=== PATIENT | female | born 1940 | race Caucasian/White ===

== ENCOUNTER 2018-12-19 14:33 | Emergency (ER) | payer MEDICARE, BC ==
--- NOTE | 2018-12-19 15:30 | EDM.PDOC ---
ED HPI GENERAL MEDICAL PROBLEM - General Chief Complaint: General Stated Complaint: breathing issues while sleeping Time Seen by Provider: 12/19/18 15:15 Source of Information: Reports: Patient, Old Records History Limitations: Reports: No Limitations - History of Present Illness INITIAL COMMENTS - FREE TEXT/NARRATIVE: 78 yo female with and a recent ECHO that showed 45- 50% EF(was 60% on her prior study) was last seen by her pipe bender in August. They added an ARB and metoprolol at that time and asked her to return in a year for another ECHO. She has been experiencing increased frequency of waking in the middle of the night with SOB. When this occurs she sits up and the problem goes away. She is on CPAP for sleep apnea. She feels perfectly fine now with no SOB or CP, but when she called her pipe bender today to report her sx's was told to go to the ER. She has never discussed this problem with her primary care provider. She thinks her BP in August was in the 120-130 systolic range and she has not missed any of her meds lately. 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) - Related Data Allergies Allergy/AdvReac Type Severity Reaction Status Date / Time atenolol Allergy Itching Verified 07/05/16 09:27 penicillin G AdvReac Nausea and Verified 07/05/16 09:27 Vomiting Home Meds: Home Meds Amitriptyline [Elavil] 0.5 tab PO BEDTIME 07/31/13 [History] Calcium Carbonate/Vitamin D3 [Calcium Carbonate/Vitamin D 1250 MG-200 Unit] 1 tab PO BID 07/31/13 [History] Cyanocobalamin (Vitamin B-12) [Vitamin B-12] 1,000 mcg PO DAILY 07/31/13 [ History] Docusate Sodium [Colace] 100 mg PO DAILY PRN 07/31/13 [History] Magnesium Amino Acid Chelate [Magnesium] 100 mg PO DAILY 07/31/13 [History] Metoprolol Succinate [Toprol XL] 50 mg PO BID 07/31/13 [History] Multivit with Calcium,Iron,Min [One Daily Maximum] 1 each PO DAILY 07/31/13 [ History] [place]-3/DHA/Epa/Fish Oil [[place]-3 Fish Oil 1,000 MG Sfgl] 1,000 mg PO DAILY [History] Psyllium with Sucrose [Metamucil] 1 each PO DAILY 07/31/13 [History] atorvaSTATin [Lipitor] 20 mg PO BEDTIME 07/31/13 [History] diazePAM [Valium] 5 mg PO BID PRN 07/31/13 [History] Aspirin [Ecotrin EC] 1 tab PO DAILY 06/29/16 [History] Calcium Carbonate [Tums] 1 tab PO DAILY PRN 06/29/16 [History] Fluticasone/Vilanterol [Breo Ellipta 100-25 MCG Inhalation Kit] 1 puff INH DAILY 06/29/16 [History] Albuterol [Ventolin HFA] 1 - 2 puff INH Q6H PRN 12/19/18 [History] Famotidine [Pepcid] 20 mg PO ASDIRECTED PRN 12/19/18 [History] Fluticasone/Vilanterol [Breo Ellipta 100-25 MCG Inhalation Kit] 1 puff INH DAILY 12/19/18 [History] Losartan [Cozaar] 25 mg PO DAILY 12/19/18 [History] Social & Family History - Tobacco Use Smoking Status *Q: Never Smoker ED ROS GENERAL - Review of Systems Review Of Systems: See Below Constitutional: Reports: No Symptoms HEENT: Reports: No Symptoms Respiratory: Reports: Shortness of Breath (with lying only) Cardiovascular: Reports: Orthopnea Endocrine: Reports: No Symptoms GI/Abdominal: Reports: No Symptoms : Reports: No Symptoms Musculoskeletal: Reports: No Symptoms Skin: Reports: No Symptoms Neurological: Reports: No Symptoms Psychiatric: Reports: No Symptoms ED EXAM, GENERAL - Physical Exam Exam: See Below Exam Limited By: No Limitations General Appearance: Alert, WD/WN, No Apparent Distress Eye Exam: Bilateral Eye: Normal Inspection Ears: Normal External Exam, Normal Canal, Hearing Grossly Normal, Normal TMs Ear Exam: Bilateral Ear: Auricle Normal, Canal Normal, TM normal Nose: Normal Inspection, No Blood Throat/Mouth: Normal Inspection, Normal Lips, Normal Oropharynx, Normal Voice, No Airway Compromise Head: Atraumatic, Normocephalic Neck: Normal Inspection, Supple, Non-Tender Respiratory/Chest: No Respiratory Distress, No Accessory Muscle Use, Rales (at extreme bases only) Cardiovascular: Regular Rate, Rhythm, No Edema GI/Abdominal: Normal Bowel Sounds, Soft, Non-Tender, No Distention Back Exam: Normal Inspection. No: CVA Tenderness (R), CVA Tenderness (L) Extremities: Normal Inspection, Normal Range of Motion, Non-Tender, No Pedal Edema Neurological: Alert, Oriented, CN II-XII Intact, Normal Cognition, No Motor/ Sensory Deficits Psychiatric: Normal Affect, Normal Mood Skin Exam: Warm, Dry, Intact, Normal Color, No Rash Course - Vital Signs Last Recorded V/S: Last Vital Signs Temp 36.2 C 12/19/18 15:21 Pulse 68 12/19/18 15:21 Resp 16 12/19/18 15:21 BP 170/90 H 12/19/18 15:21 Pulse Ox 95 12/19/18 15:21 - Orders/Labs/Meds Labs: Laboratory Tests 12/19/18 12/19/18 12/19/18 Range/Units 15:33 15:33 15:33 WBC 9.0 (4.5-11.0) K/uL RBC 4.19 (3.30-5.50) M/uL Hgb 13.0 (12.0-15.0) g/dL Hct 41.0 (36.0-48.0) % MCV 98 (80-98) fL MCH 31 (27-31) pg MCHC 32 (32-36) % Plt Count 194 (150-400) K/uL Sodium 141 (140-148) mmol/L Potassium 4.8 (3.6-5.2) mmol/L Chloride 102 (100-108) mmol/L Carbon Dioxide 34 H (21-32) mmol/L Anion Gap 9.8 (5.0-14.0) mmol/L BUN 17 (7-18) mg/dL Creatinine 1.0 (0.6-1.0) mg/dL Est Cr Clr Drug Dosing 39.39 mL/min Estimated GFR (MDRD) 53 L (>60) Glucose 106 (74-106) mg/dL Calcium 9.4 (8.5-10.1) mg/dL Troponin I < 0.017 (0.000-0.056) ng/mL NT-Pro-B Natriuret Pep 187 (5-450) pg/mL - Radiology Interpretation Free Text/Narrative:: CXR-neg Departure - Departure Time of Disposition: 16:10 Disposition: Home, Self-Care 01 Condition: Good Clinical Impression: GERD (gastroesophageal reflux disease) Qualifiers: Esophagitis presence: without esophagitis Qualified Code(s): K21.9 - Gastro- esophageal reflux disease without esophagitis - Discharge Information *PRESCRIPTION DRUG MONITORING PROGRAM REVIEWED*: No *COPY OF PRESCRIPTION DRUG MONITORING REPORT IN PATIENT NICOLLE: No Referrals: Sheeba Toribio CNM [Primary Care Provider] - Forms: ED Department Discharge Additional Instructions: Take famotidine every day with your evening meal. Avoid eating or drinking after 6 pm. Elevated the head of your bed slightly to reduce the risk of reflux. See you provider within the week to see if this is helping and also to have your BP rechecked. Return as needed.
--- NOTE | 2018-12-19 15:47 | CRLCR ---
INDICATION: orthopnea, PND TECHNIQUE: Chest 2 views. COMPARISON: None. FINDINGS: Cardiovascular and mediastinum: Heart size and vasculature are normal in caliber and appearance. Mediastinum is within normal limits. Lungs and pleural spaces: Lungs are clear. No sign of infiltrate or mass. No sign of pleural effusion. No pneumothorax. Bones and soft tissues: No significant findings. IMPRESSION: Unremarkable chest. Dictated by: Reji Thomas MD @ 12/19/2018 15:46:25 (Electronically Signed)
[2018-12-19 16:09] VITALS: BP 155/82; PULSE 64
== END 2018-12-19 16:16 | disposition home or self-care (01) ==
LOC: JP.ED 14:33
DX: K21.9 Gastro-esophageal reflux disease without esophagitis (principal); I10 Essential (primary) hypertension; M81.0 Age-related osteoporosis without current pathological fracture; Z88.0 Allergy status to penicillin; Z79.82 Long term (current) use of aspirin; Z79.899 Other long term (current) drug therapy
CPT/HCPCS: 36415; 71046; 80048; 83880; 84484; 85027; 99283; 99284-25

== ENCOUNTER 2019-04-19 13:22 | Inpatient (IN) | payer MEDICARE, BC ==
--- NOTE | 2019-04-19 15:08 | EDM.PDOC ---
ED HPI GENERAL MEDICAL PROBLEM - General Chief Complaint: ENT Problem Stated Complaint: SORE THROAT Time Seen by Provider: 04/19/19 15:07 Source of Information: Reports: Patient, Family History Limitations: Reports: No Limitations - History of Present Illness INITIAL COMMENTS - FREE TEXT/NARRATIVE: 79 years old female patient presented with chief complaint of Sore throat and difficulty swallowing since yesterday. No fever. Feels like a lump on the left side of her throat. No trouble breathing. Denies any sick contact. Denies any chest pain shortness breath. Denies any nausea or vomiting. Denies any abdominal pain diarrhea or constipation. Denies any urinary symptom. Denies any headache or visual changes. - Related Data Allergies Allergy/AdvReac Type Severity Reaction Status Date / Time atenolol Allergy Itching Verified 04/19/19 13:44 penicillin G AdvReac Hives Verified 04/19/19 13:44 Home Meds: Home Meds Amitriptyline [Elavil] 0.5 tab PO BEDTIME 07/31/13 [History] Calcium Carbonate/Vitamin D3 [Calcium Carbonate/Vitamin D 1250 MG-200 Unit] 1 tab PO BID 07/31/13 [History] Cyanocobalamin (Vitamin B-12) [Vitamin B-12] 1,000 mcg PO DAILY 07/31/13 [ History] Docusate Sodium [Colace] 100 mg PO DAILY PRN 07/31/13 [History] Magnesium Amino Acid Chelate [Magnesium] 100 mg PO DAILY 07/31/13 [History] Metoprolol Succinate [Toprol XL] 50 mg PO BID 07/31/13 [History] Multivit with Calcium,Iron,Min [One Daily Maximum] 1 each PO DAILY 07/31/13 [ History] [place]-3/DHA/Epa/Fish Oil [[place]-3 Fish Oil 1,000 MG Sfgl] 1,000 mg PO DAILY [History] Psyllium with Sucrose [Metamucil] 1 each PO DAILY 07/31/13 [History] atorvaSTATin [Lipitor] 20 mg PO BEDTIME 07/31/13 [History] diazePAM [Valium] 5 mg PO BID PRN 07/31/13 [History] Aspirin [Ecotrin EC] 1 tab PO DAILY 06/29/16 [History] Calcium Carbonate [Tums] 1 tab PO DAILY PRN 06/29/16 [History] Albuterol [Ventolin HFA] 1 - 2 puff INH Q6H PRN 12/19/18 [History] Famotidine 20 mg PO DAILY #30 tablet 12/19/18 [Rx] Famotidine [Pepcid] 20 mg PO ASDIRECTED PRN 12/19/18 [History] Fluticasone/Vilanterol [Breo Ellipta 100-25 MCG Inhalation Kit] 1 puff INH DAILY 12/19/18 [History] Losartan [Cozaar] 25 mg PO DAILY 12/19/18 [History] Past Medical History HEENT History: Reports: Impaired Vision Cardiovascular History: Reports: Hypertension Other Cardiovascular History: arotic stenosis Respiratory History: Reports: COPD, Sleep Apnea Gastrointestinal History: Reports: GERD, Irritable Bowel Syndrome 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 ED EXAM, ENT - Physical Exam Exam: See Below Exam Limited By: No Limitations General Appearance: Alert, WD/WN, No Apparent Distress Nose: Normal Inspection, Normal Mucousa, No Blood Mouth/Throat: Pharyngeal Erythema, Throat Pain, Throat Swelling, Tonsillar Erythema, Tonsillar Exudates, Tonsillar Swelling, Uvular Deviation, Uvular Edema. No: Tongue Swelling Head: Atraumatic, Normocephalic Neck: Normal Inspection, Supple, Full Range of Motion, Lymphadenopathy (L), Tender Lateral Respiratory/Chest: No Respiratory Distress, Lungs Clear, Normal Breath Sounds, No Accessory Muscle Use, Chest Non-Tender Cardiovascular: Normal Peripheral Pulses, Regular Rate, Rhythm, No Edema, No Gallop, No JVD, No Murmur, No Rub GI/Abdominal: Normal Bowel Sounds, Soft, Non-Tender, No Organomegaly, No Distention, No Abnormal Bruit, No Mass Extremities: Normal Inspection, Normal Range of Motion, Non-Tender, No Pedal Edema, Normal Capillary Refill Neurological: Alert, Oriented, CN II-XII Intact, Normal Cognition, Normal Gait, Normal Reflexes, No Motor/Sensory Deficits Skin: Warm, Dry, Intact, Normal Color, No Rash Course - Vital Signs Last Recorded V/S: Last Vital Signs Temp 36.8 C 04/19/19 13:48 Pulse 76 04/19/19 13:48 Resp 14 04/19/19 13:48 BP 169/92 H 04/19/19 13:48 Pulse Ox 97 04/19/19 13:48 - Orders/Labs/Meds Orders: Active Orders 24 hr Category Date Time Status CULTURE STREP A CONFIRMATION [] Stat Lab 04/19/19 15:32 Results STREP SCRN A RAPID W CULT CONF [] Stat Lab 04/19/19 15:32 Results Iopamidol [Isovue-300 (61%)] Med 04/19/19 16:09 Active 100 ml IV . DIRECTED PRN Sodium Chloride 0.9% [Normal Saline] 100 ml Med 04/19/19 16:15 Active IV ASDIRECTED Medication Orders Sodium Chloride (Normal Saline) 100 mls @ 3 mls/sec IV ASDIRECTED MACO Iopamidol (Isovue-300 (61%)) 100 ml IV . DIRECTED PRN PRN Reason: RADIOLOGY EXAM Stop: 04/20/19 16:10 Labs: Laboratory Tests 04/19/19 04/19/19 04/19/19 Range/Units 15:32 15:32 15:32 WBC 18.5 H (4.5-11.0) K/uL RBC 4.05 (3.30-5.50) M/uL Hgb 12.7 (12.0-15.0) g/dL Hct 39.9 (36.0-48.0) % MCV 99 H (80-98) fL MCH 31 (27-31) pg MCHC 32 (32-36) % Plt Count 232 (150-400) K/uL Neut % (Auto) 78 H (36-66) % Lymph % (Auto) 12 L (24-44) % [place] % (Auto) 10 H (2-6) % Eos % (Auto) 1 L (2-4) % Baso % (Auto) 0 (0-1) % Sodium 134 L (140-148) mmol/L Potassium 5.1 (3.6-5.2) mmol/L Chloride 97 L (100-108) mmol/L Carbon Dioxide 29 (21-32) mmol/L Anion Gap 13.1 (5.0-14.0) mmol/L BUN 8 D (7-18) mg/dL Creatinine 0.8 (0.6-1.0) mg/dL Est Cr Clr Drug Dosing 46.40 mL/min Estimated GFR (MDRD) > 60 (>60) Glucose 120 H (74-106) mg/dL Lactic Acid 1.3 (0.4-2.0) mmol/L Calcium 8.8 (8.5-10.1) mg/dL C-Reactive Protein 5.02 H (0.0-0.3) mg/dL Meds: Medications Generic Name Dose Route Start Last Admin Trade Name Freq PRN Reason Stop Dose Admin Sodium Chloride 100 mls @ 3 mls/sec 04/19/19 16:15 Normal Saline IV ASDIRECTED MACO Iopamidol 100 ml 04/19/19 16:09 Isovue-300 (61%) IV 04/20/19 16:10 . DIRECTED PRN RADIOLOGY EXAM Discontinued Medications Generic Name Dose Route Start Last Admin Trade Name Freq PRN Reason Stop Dose Admin Clindamycin Phosphate 600 mg/ 54 mls @ 100 mls/hr 04/19/19 18:09 04/19/19 18: 25 Sodium Chloride IV 04/19/19 18:41 100 mls/hr ONETIME ONE Administration - Re-Assessments/Exams Free Text/Narrative Re-Assessment/Exam: 04/19/19 18:46 Patient was seen and examined shortly after arrival. Stable. Lab and imaging reviewed with the patient and her daughter at the bedside. Negative rapid strep. Culture is pending. CT soft tissue of the neck shows 12 mm left-sided peritonsillar abscess. No submandibular edema. Also shows sign of epiglottitis. I did consulted was Dr. Ryan ENT on-call at [facility] and he recommended admitting the patient locally for IV antibiotics like clindamycin. I did order 600 mg IV clindamycin. I did wanted to start her on Zosyn however she is allergic to penicillin. Case was discussed with Dr. Patel hospitalist options advisor and he accepted admission for further management. Patient agrees with the plan. Stable for admission. Departure - Departure Time of Disposition: 18:07 Disposition: Admitted As Inpatient 65 Condition: Good Clinical Impression: Peritonsillar abscess, Peritoneal abscess, Epiglottitis - Discharge Information *PRESCRIPTION DRUG MONITORING PROGRAM REVIEWED*: Not Applicable *COPY OF PRESCRIPTION DRUG MONITORING REPORT IN PATIENT NICOLLE: Not Applicable Instructions: Peritonsillar Abscess Referrals: PCP,None [Primary Care Provider] - Forms: ED Department Discharge - My Orders Last 24 Hours: My Active Orders 04/19/19 15:32 CULTURE STREP A CONFIRMATION [RM] Stat STREP SCRN A RAPID W CULT CONF [RM] Stat 04/19/19 16:09 Iopamidol [Isovue-300 (61%)] 100 ml IV . DIRECTED PRN 04/19/19 16:15 Sodium Chloride 0.9% [Normal Saline] 100 ml IV ASDIRECTED - Assessment/Plan Last 24 Hours: My Active Orders 04/19/19 15:32 CULTURE STREP A CONFIRMATION [RM] Stat STREP SCRN A RAPID W CULT CONF [RM] Stat 04/19/19 16:09 Iopamidol [Isovue-300 (61%)] 100 ml IV . DIRECTED PRN 04/19/19 16:15 Sodium Chloride 0.9% [Normal Saline] 100 ml IV ASDIRECTED Plan: Admission to Dr. Patel hospitalist options advisor
[2019-04-19] MEDS ORDERED: Iopamidol 612 MG/ML 100 ML Bottle IV PRN (16:09)
[2019-04-19] MEDS ORDERED: Sodium Chloride 0.9% 100 ML IV SCH (16:15)
--- NOTE | 2019-04-19 17:13 | CRLCT ---
INDICATION: Left-sided throat pain. Difficulty swallowing. TECHNIQUE: CT soft tissue of the neck was acquired with 100 cc Isovue-300 IV contrast. COMPARISON: None FINDINGS: Skull base: Unremarkable. Pharynx/Larynx/Trachea: Epiglottis is edematous and enlarged and is best visualized on the sagittal series 10, image 35. fluid and edema extending from the abscess into the left submandibular space. There is minimal mass effect on the airway. Salivary glands: Unremarkable. Thyroid gland: Unremarkable. No significant nodules. Lymph nodes: No lymphadenopathy. Vessels: Unremarkable for age. Bones: Unremarkable for age. Misc: No inflammation, mass or fluid collection. Lung apices: Unremarkable. IMPRESSION: 1. Epiglottitis is present. 2. Relatively small left peritonsillar abscess with fluid and edema extending into the left submandibular space. 3. Remainder of the exam is unremarkable. Results discussed with Dr. Loco at 1712 hours. Dictated by Rajan Gonzales MD @ 04/19/2019 5:10:07 PM Dictated by: Rajan Gonzales MD @ 04/19/2019 17:12:38 (Electronically Signed)
[2019-04-19] MEDS ORDERED: Lidocaine 2% Viscous Solution 15 ML Cup PO ONE (18:46)
--- NOTE | 2019-04-19 18:57 | PCM.HP.2 ---
H&P History of Present Illness - General Date of Service: 04/19/19 Admit Problem/Dx: Admission Diagnosis/Problem Admission Diagnosis/Problem Peritonsillar abscess Source of Information: Patient, Family, Provider History Limitations: Reports: No Limitations - History of Present Illness Initial Comments - Free Text/Narative: CC: My throat hurts HPI: Shakeel presents to the emergency room today with sharp moderately severe pain in her neck and throat. Symptoms started yesterday with a mild sore throat and have steadily progressed since that time. She reports severe pain in the back of her throat anytime she tries to swallow but liquids are better than solids by far. Pain radiates into the left neck and to the left part of her jaw as well as up to her ear. She has been using acetaminophen and ibuprofen as well as lozenges without any improvement. Pain has been steadily getting worse. She has only been able to consume small amounts of liquid at a time over the past 24 hours. She is not able to take in anything solid. She has not had any subjective fevers or chills. She does not have any nausea or abdominal pain. No complaints of shortness of breath at this time. No obvious sick contacts or travel. She felt well prior to onset. She has not had recent difficulties with sore throats. Work-up in the emergency room revealed leukocytosis. CT scan of the abdomen and pelvis was obtained that showed A left peritonsillar abscess that was about 1 cm. There was some surrounding inflammatory fluid. military logistics specialist in [place] was contacted and he recommended IV antibiotics and close monitoring especially because epiglottitis was also noted. Patient has received clindamycin in the emergency room and will be admitted for further management. - Related Data Allergies/Adverse Reactions: Allergies Allergy/AdvReac Type Severity Reaction Status Date / Time atenolol Allergy Itching Verified 04/19/19 13:44 penicillin G AdvReac Hives Verified 04/19/19 13:44 Home Medications: Home Meds Amitriptyline [Elavil] 0.5 tab PO BEDTIME 07/31/13 [History] Calcium Carbonate/Vitamin D3 [Calcium Carbonate/Vitamin D 1250 MG-200 Unit] 1 tab PO BID 07/31/13 [History] Cyanocobalamin (Vitamin B-12) [Vitamin B-12] 1,000 mcg PO DAILY 07/31/13 [ History] Docusate Sodium [Colace] 100 mg PO DAILY PRN 07/31/13 [History] Magnesium Amino Acid Chelate [Magnesium] 100 mg PO DAILY 07/31/13 [History] Metoprolol Succinate [Toprol XL] 50 mg PO BID 07/31/13 [History] Multivit with Calcium,Iron,Min [One Daily Maximum] 1 each PO DAILY 07/31/13 [ History] Parker-3/DHA/Epa/Fish Oil [Parker-3 Fish Oil 1,000 MG Sfgl] 1,000 mg PO DAILY [History] Psyllium with Sucrose [Metamucil] 1 each PO DAILY 07/31/13 [History] atorvaSTATin [Lipitor] 20 mg PO BEDTIME 07/31/13 [History] diazePAM [Valium] 5 mg PO BID PRN 07/31/13 [History] Aspirin [Ecotrin EC] 1 tab PO DAILY 06/29/16 [History] Calcium Carbonate [Tums] 1 tab PO DAILY PRN 06/29/16 [History] Albuterol [Ventolin HFA] 1 - 2 puff INH Q6H PRN 12/19/18 [History] Famotidine 20 mg PO DAILY #30 tablet 12/19/18 [Rx] Famotidine [Pepcid] 20 mg PO ASDIRECTED PRN 12/19/18 [History] Fluticasone/Vilanterol [Breo Ellipta 100-25 MCG Inhalation Kit] 1 puff INH DAILY 12/19/18 [History] Losartan [Cozaar] 25 mg PO DAILY 12/19/18 [History] Past Medical History HEENT History: Reports: Impaired Vision Cardiovascular History: Reports: Hypertension Other Cardiovascular History: arotic stenosis Respiratory History: Reports: COPD, Sleep Apnea Gastrointestinal History: Reports: GERD, Irritable Bowel Syndrome 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 Pertinent positives and negatives are noted in the history of present illness. All other systems were reviewed and were negative except as noted. Exam - Exam Exam: See Below - Vital Signs Vital Signs: Last Vital Signs Temp 36.8 C 04/19/19 13:48 Pulse 76 04/19/19 13:48 Resp 14 04/19/19 13:48 BP 169/92 H 04/19/19 13:48 Pulse Ox 97 04/19/19 13:48 Weight: 76.9 kg - Exam Quality Assessment: No: Supplemental Oxygen General: Alert, Oriented, Cooperative. No: Mild Distress HEENT: Conjunctiva Clear, Pupils Equal. No: Mucosa Moist & [place] (dry), Scleral Icterus Neck: Supple, Other (swelling of left neck. Left neck quite tender with palpation and warm to touch ). No: Lymphadenopathy Lungs: Clear to Auscultation, Normal Respiratory Effort Cardiovascular: Regular Rate, Regular Rhythm GI/Abdominal Exam: Normal Bowel Sounds, Soft, Non-Tender, No Distention Back Exam: Normal Inspection, Full Range of Motion Extremities: No Pedal Edema. No: Increased Warmth Peripheral Pulses: 2+: Dorsalis Pedis (L), Dorsalis Pedis (R) Skin: Warm, Dry Neuro Extensive - Mental Status: Alert, Oriented x3, Nl Response to Commands Neuro Extensive - Motor, Sensory, Reflexes: No: Dysarthria, Abnormal Motor Psychiatric: Alert, Normal Affect - Patient Data Lab Results Last 24 hrs: Laboratory Results - last 24 hr 04/19/19 04/19/19 04/19/19 Range/Units 15:32 15:32 15:32 WBC 18.5 H (4.5-11.0) K/uL RBC 4.05 (3.30-5.50) M/uL Hgb 12.7 (12.0-15.0) g/dL Hct 39.9 (36.0-48.0) % MCV 99 H (80-98) fL MCH 31 (27-31) pg MCHC 32 (32-36) % Plt Count 232 (150-400) K/uL Neut % (Auto) 78 H (36-66) % Lymph % (Auto) 12 L (24-44) % [place] % (Auto) 10 H (2-6) % Eos % (Auto) 1 L (2-4) % Baso % (Auto) 0 (0-1) % Sodium 134 L (140-148) mmol/L Potassium 5.1 (3.6-5.2) mmol/L Chloride 97 L (100-108) mmol/L Carbon Dioxide 29 (21-32) mmol/L Anion Gap 13.1 (5.0-14.0) mmol/L BUN 8 D (7-18) mg/dL Creatinine 0.8 (0.6-1.0) mg/dL Est Cr Clr Drug Dosing 46.40 mL/min Estimated GFR (MDRD) > 60 (>60) Glucose 120 H (74-106) mg/dL Lactic Acid 1.3 (0.4-2.0) mmol/L Calcium 8.8 (8.5-10.1) mg/dL C-Reactive Protein 5.02 H (0.0-0.3) mg/dL Result Diagrams: 04/19/19 15:32 04/19/19 15:32 Jasmeet Results Last 24 hrs: Microbiology 04/19/19 15:32 Group A Streptococcus Rapid Screen - Final Throat NEGATIVE STREP A SCREEN REFERENCE RANGE: NEGATIVE Imaging Impressions Last 24 hrs: CT neck soft tissue - images personally reviewed - there is a small left peritonsillar abscess with inflammatory fluid surrounding and extending into the floor of the mouth on the left and into the left neck space. The radiologist also commented on epiglottitis *Q Meaningful Use (ADM) - VTE Risk Assess *Q Each Risk Factor Represents 1 Point: Obesity ( BMI > 25 kg/m2) Total Score 1 Point Risk Factors: 1 Each Risk Factor Represents 2 Points: None Total Score 2 Point Risk Factors: 0 Each Risk Factor Represents 3 Points: Age 75 Years or Greater Total Score 3 Point Risk Factors: 3 Each Risk Factor Represents 5 Points: None Total Score 5 Point Risk Factors: 0 Venous Thromboembolism Risk Factor Score *Q: 4 - Problem List (1) Peritonsillar abscess SNOMED Code(s): 71075941 ICD Code: J36 - PERITONSILLAR ABSCESS Status: Acute Current Visit: Yes (2) Epiglottitis SNOMED Code(s): 34641138 ICD Code: J05.10 - ACUTE EPIGLOTTITIS WITHOUT OBSTRUCTION Status: Acute Current Visit: Yes Problem List Initiated/Reviewed/Updated: Yes Orders Last 24hrs: Active Orders 24 hr Category Date Time Status Patient Status Manage Transfer [TRANSFER] Routine ADT 04/19/19 18:46 Ordered CULTURE STREP A CONFIRMATION [] Stat Lab 04/19/19 15:32 Results STREP SCRN A RAPID W CULT CONF [] Stat Lab 04/19/19 15:32 Results Iopamidol [Isovue-300 (61%)] Med 04/19/19 16:09 Active 100 ml IV . DIRECTED PRN Sodium Chloride 0.9% [Normal Saline] 1,000 ml Med 04/19/19 18:45 Active IV ASDIRECTED Sodium Chloride 0.9% [Normal Saline] 100 ml Med 04/19/19 16:15 Active IV ASDIRECTED Resuscitation Status Routine Resus Stat 04/19/19 18:48 Ordered Medication Orders Sodium Chloride (Normal Saline) 100 mls @ 3 mls/sec IV ASDIRECTED MACO Sodium Chloride (Normal Saline) 1,000 mls @ 100 mls/hr IV ASDIRECTED MACO Iopamidol (Isovue-300 (61%)) 100 ml IV . DIRECTED PRN PRN Reason: RADIOLOGY EXAM Stop: 04/20/19 16:10 Assessment/Plan Comment:: ASSESSMENT AND PLAN - Left peritonsillar abscess with epiglottitis-no evidence for sepsis at this time but patient is having a great deal of pain and difficulty swallowing though she is able to get down small quantities of liquids. military logistics specialist contacted and no surgery indicated at this time. With her difficulty swallowing and mild dehydration she is not safe for outpatient management. -IV clindamycin -Pain control with lozenges and viscous lidocaine -Additional pain control with acetaminophen, ibuprofen or oxycodone for more impressive pain -reassess in the morning -Blood cultures if she has a fever Essential hypertension-continue home medications. Maintenance issues - - DVT prophylaxis -mechanical - GI prophylaxis -H2 carlitos - Nutrition -full liquids - Cesar catheter -not indicated CODE STATUS -full code Admission justification -this patient will be admitted for inpatient services and is medically appropriate meeting medical necessity for inpatient admission as outlined in my documentation. I reasonably expect the patient will require inpatient services that span a period time over 2 midnights. I reasonably expect this patient to be discharged or transferred within 96 hours [facility]. Disposition -I would anticipate discharge home after the hospital stay Primary care physician -Sheeba Toribio nurse practitioner Jorge Patel M.D. - Mortality Measure Prognosis:: Good
[2019-04-19] MEDS: Sodium Chloride 0.9% 1,000 ML IV SCH (19:11)
[2019-04-19] MEDS ORDERED: Magnesium Hydroxide 400 MG/5 ML Susp 30 ML Cup PO PRN (19:40)
[2019-04-19] MEDS ORDERED: LORazepam 2 MG/ML SDV IVPUSH PRN (19:40)
[2019-04-19] MEDS ORDERED: Lidocaine 2% Viscous Solution 15 ML Cup PO PRN (19:40)
[2019-04-19] MEDS ORDERED: Ondansetron 4 MG/2 ML SDV IV PRN (19:40)
[2019-04-19] MEDS ORDERED: Ondansetron 4 MG Tab.DIS PO PRN (19:40)
[2019-04-19] MEDS ORDERED: Benzocaine/Cetylpyridinium/Menthol Lozenge MUCMEM PRN (19:40)
[2019-04-19] MEDS: Acetaminophen 325 MG Tab PO PRN (20:07)
[2019-04-19] MEDS ORDERED: Formoterol/Mometasone 100-5 MCG 8.8 GM Inhaler IH SCH (21:00)
[2019-04-19] MEDS: Melatonin 3 MG Tab PO PRN (21:13)
[2019-04-19] MEDS: Metoprolol Succinate 50 MG Tab.ER PO SCH (21:13)
[2019-04-19] MEDS: Calcium Carbonate/Vitamin D3 1500 MG-400 Units Tab PO SCH (21:13)
[2019-04-19] MEDS: Lactobacillus Rhamnosus GG (Probiotic) Cap PO SCH (21:13)
[2019-04-19] MEDS: atorvaSTATin 20 MG Tab PO SCH (21:14)
[2019-04-19] MEDS: Amitriptyline 25 MG Tab PO SCH (21:23)
[2019-04-19] MEDS: Losartan 25 MG Tab PO SCH (22:13)
[2019-04-20] MEDS: oxyCODONE 5 MG Tab PO PRN ×4 (00:17→18:43)
[2019-04-20] MEDS: Sodium Chloride 0.9% 1,000 ML IV SCH (05:04)
[2019-04-20] MEDS: Ibuprofen 600 MG Tab PO PRN (07:44)
[2019-04-20] MEDS: Fluticasone-Salmeterol 113-14 MCG Powder Inhalant INH SCH ×2 (07:47→21:41)
[2019-04-20] MEDS ORDERED: Losartan 25 MG Tab PO SCH (09:00)
[2019-04-20] MEDS: Cyanocobalamin (Vitamin B12) 1,000 MCG Tab PO SCH (10:08)
[2019-04-20] MEDS: Lactobacillus Rhamnosus GG (Probiotic) Cap PO SCH ×2 (10:08→21:41)
[2019-04-20] MEDS: Aspirin 81 MG Tab.EC PO SCH (10:09)
[2019-04-20] MEDS: Metoprolol Succinate 50 MG Tab.ER PO SCH ×2 (10:09→21:44)
[2019-04-20] MEDS: Famotidine 20 MG Tab PO SCH (10:09)
[2019-04-20] MEDS: Calcium Carbonate/Vitamin D3 1500 MG-400 Units Tab PO SCH ×2 (10:14→21:41)
[2019-04-20] MEDS: Acetaminophen 325 MG Tab PO PRN ×2 (12:23→18:44)
--- NOTE | 2019-04-20 13:37 | PCM.PN ---
- General Info Date of Service: 04/20/19 Subjective Update: Ms. Mayo is somewhat improved from admission, continues to experience very sore throat and swelling in the left side of her neck. Vital signs have remained stable and she has temperature elevation during the night. White blood cell count has improved modestly but remains elevated. She is doing well as far as liquid intake and denies any difficulty with breathing. Functional Status: Reports: Tolerating Diet, Urinating - Review of Systems General: Reports: Fever, Weakness, Malaise HEENT: Reports: Other (Palpable swelling and tenderness left neck) Pulmonary: Reports: No Symptoms Cardiovascular: Reports: No Symptoms Gastrointestinal: Reports: No Symptoms - Patient Data Vitals - Most Recent: Last Vital Signs Temp 96.6 F 04/20/19 11:08 Pulse 72 04/20/19 11:08 Resp 16 04/20/19 11:08 BP 103/62 04/20/19 11:08 Pulse Ox 94 L 04/20/19 11:08 Weight - Most Recent: 168 lb I&O - Last 24 Hours: Intake & Output 04/19/19 04/20/19 04/20/19 22:59 06:59 14:59 Intake Total 994 718 7322 Output Total 1150 250 Balance 300 -224 1700 Lab Results Last 24 Hours: Laboratory Results - last 24 hr 04/19/19 04/19/19 04/19/19 Range/Units 15:32 15:32 15:32 WBC 18.5 H (4.5-11.0) K/uL RBC 4.05 (3.30-5.50) M/uL Hgb 12.7 (12.0-15.0) g/dL Hct 39.9 (36.0-48.0) % MCV 99 H (80-98) fL MCH 31 (27-31) pg MCHC 32 (32-36) % Plt Count 232 (150-400) K/uL Neut % (Auto) 78 H (36-66) % Lymph % (Auto) 12 L (24-44) % Ocean % (Auto) 10 H (2-6) % Eos % (Auto) 1 L (2-4) % Baso % (Auto) 0 (0-1) % Sodium 134 L (140-148) mmol/L Potassium 5.1 (3.6-5.2) mmol/L Chloride 97 L (100-108) mmol/L Carbon Dioxide 29 (21-32) mmol/L Anion Gap 13.1 (5.0-14.0) mmol/L BUN 8 D (7-18) mg/dL Creatinine 0.8 (0.6-1.0) mg/dL Est Cr Clr Drug Dosing 46.40 mL/min Estimated GFR (MDRD) > 60 (>60) Glucose 120 H (74-106) mg/dL Lactic Acid 1.3 (0.4-2.0) mmol/L Calcium 8.8 (8.5-10.1) mg/dL C-Reactive Protein 5.02 H (0.0-0.3) mg/dL 04/20/19 04/20/19 Range/Units 04:00 04:00 WBC 16.2 H (4.5-11.0) K/uL RBC 3.72 (3.30-5.50) M/uL Hgb 11.5 L (12.0-15.0) g/dL Hct 36.9 (36.0-48.0) % MCV 99 H (80-98) fL MCH 31 (27-31) pg MCHC 31 L (32-36) % Plt Count 204 (150-400) K/uL Neut % (Auto) (36-66) % Lymph % (Auto) (24-44) % Ocean % (Auto) (2-6) % Eos % (Auto) (2-4) % Baso % (Auto) (0-1) % Sodium 137 L (140-148) mmol/L Potassium 4.0 (3.6-5.2) mmol/L Chloride 101 (100-108) mmol/L Carbon Dioxide 26 (21-32) mmol/L Anion Gap 14.0 (5.0-14.0) mmol/L BUN 6 L (7-18) mg/dL Creatinine 0.8 (0.6-1.0) mg/dL Est Cr Clr Drug Dosing 46.40 mL/min Estimated GFR (MDRD) > 60 (>60) Glucose 136 H (74-106) mg/dL Lactic Acid (0.4-2.0) mmol/L Calcium 8.2 L (8.5-10.1) mg/dL C-Reactive Protein (0.0-0.3) mg/dL Jasmeet Results Last 24 Hours: Microbiology 04/19/19 15:32 Group A Streptococcus Rapid Screen - Final Throat NEGATIVE STREP A SCREEN REFERENCE RANGE: NEGATIVE Med Orders - Current: Current Medications Acetaminophen (Tylenol) 650 mg PO Q4H PRN PRN Reason: Pain (Mild 1-3)/fever Last Admin: 04/20/19 12:23 Dose: 650 mg Amitriptyline HCl (Elavil) 12.5 mg PO BEDTIME [facility] Last Admin: 04/19/19 21:23 Dose: 12.5 mg Aspirin (Halfprin) 81 mg PO DAILY [facility] Last Admin: 04/20/19 10:09 Dose: 81 mg Atorvastatin Calcium (Lipitor) 20 mg PO BEDTIME [facility] Last Admin: 04/19/19 21:14 Dose: 20 mg Benzocaine/Menthol (Cepacol Sore Throat) 1 lozenge MUCMEM Q2H PRN PRN Reason: Sore Throat Last Admin: 04/20/19 07:43 Dose: 1 derrick Calcium Carbonate (Caltrate 600+D 1500 Mg-400 Units) 1 tab PO BID [facility] Last Admin: 04/20/19 10:14 Dose: 1 tab Calcium Carbonate/Glycine (Tums) 500 mg PO DAILY PRN PRN Reason: Heartburn Cyanocobalamin (Vitamin B12) 1,000 mcg PO DAILY [facility] Last Admin: 04/20/19 10:08 Dose: 1,000 mcg Diazepam (Valium.) 5 mg PO BID PRN PRN Reason: Muscle Spasm Famotidine (Pepcid) 20 mg PO DAILY [facility] Last Admin: 04/20/19 10:09 Dose: 20 mg Clindamycin Phosphate 600 mg/ (Sodium Chloride) 54 mls @ 100 mls/hr IV Q8H [facility] Last Admin: 04/20/19 10:10 Dose: 100 mls/hr Ibuprofen (Motrin) 600 mg PO Q6H PRN PRN Reason: Pain/Fever Last Admin: 04/20/19 07:44 Dose: 600 mg Lactobacillus Rhamnosus (Culturelle) 1 cap PO BID [facility] Last Admin: 04/20/19 10:08 Dose: 1 cap Lidocaine HCl (Xylocaine 2% Viscous) 15 ml PO Q4H PRN PRN Reason: Sore Throat Lorazepam (Ativan) 0.5 mg IVPUSH Q4H PRN PRN Reason: Nausea/Vomiting Losartan Potassium (Cozaar) 25 mg PO BEDTIME [facility] Last Admin: 04/19/19 22:13 Dose: 25 mg Magnesium Hydroxide (Milk Of Magnesia) 30 ml PO Q12H PRN PRN Reason: Constipation Melatonin (Melatonin) 9 mg PO BEDTIME PRN PRN Reason: Sleep Last Admin: 04/19/19 21:13 Dose: 9 mg Metoprolol Succinate (Toprol Xl) 50 mg PO BID [facility] Last Admin: 04/20/19 10:09 Dose: 50 mg Ondansetron HCl (Zofran Odt) 4 mg PO Q6H PRN PRN Reason: Nausea able to take PO Ondansetron HCl (Zofran) 4 mg IV Q6H PRN PRN Reason: Nausea/Vomiting Oxycodone HCl (Oxycodone) 5 - 10 mg PO Q4H PRN PRN Reason: Pain Last Admin: 04/20/19 12:22 Dose: 10 mg Fluticasone/Salmeterol (Fluticasone-Salmeterol 113-14 Mcg Powder Inh) 1 puff INH BIDRT [facility] Last Admin: 04/20/19 07:47 Dose: 1 puff Senna/Docusate Sodium (Senna Plus) 1 tab PO BID PRN PRN Reason: Constipation Last Admin: 04/20/19 07:52 Dose: 1 tab Discontinued Medications Sodium Chloride (Normal Saline) 100 mls @ 3 mls/sec IV ASDIRECTED [facility] Clindamycin Phosphate 600 mg/ (Sodium Chloride) 54 mls @ 100 mls/hr IV ONETIME ONE Stop: 04/19/19 18:41 Last Admin: 04/19/19 18:25 Dose: 100 mls/hr Sodium Chloride (Normal Saline) 1,000 mls @ 100 mls/hr IV ASDIRECTED [facility] Last Admin: 04/20/19 05:04 Dose: 100 mls/hr Clindamycin Phosphate 600 mg/ (Sodium Chloride) 54 mls @ 100 mls/hr IV Q8H [facility] Last Admin: 04/20/19 02:39 Dose: 100 mls/hr Iopamidol (Isovue-300 (61%)) 100 ml IV . DIRECTED PRN PRN Reason: RADIOLOGY EXAM Stop: 04/20/19 16:10 Lidocaine HCl (Xylocaine 2% Viscous) 15 ml PO ONETIME ONE Stop: 04/19/19 18:47 Last Admin: 04/19/19 19:10 Dose: 15 ml Losartan Potassium (Cozaar) 25 mg PO DAILY [facility] Mometasone Furoate/Formoterol Fumar (Dulera 100-5 Mcg) 2 puff IH BIDRT [facility] Last Admin: 04/19/19 21:29 Dose: Not Given - Exam Quality Assessment: DVT Prophylaxis General: Alert, Oriented, Cooperative, Moderate Distress Neck: Other (Swelling and tenderness left neck) Lungs: Clear to Auscultation, Normal Respiratory Effort Cardiovascular: Regular Rate, Regular Rhythm, No Murmurs GI/Abdominal Exam: Soft, Non-Tender, No Organomegaly, No Distention Extremities: Non-Tender, No Pedal Edema - Problem List Review Problem List Initiated/Reviewed/Updated: Yes - My Orders Last 24 Hours: My Active Orders 04/20/19 13:33 Convert IV to Saline Lock [OM.PC] Routine 04/21/19 05:00 BASIC METABOLIC PANEL,BMP [CHEM] Timed CBC WITH AUTO DIFF [HEME] Timed - Plan Plan:: ASSESSMENT AND PLAN - Left peritonsillar abscess with epiglottitis-no evidence for sepsis at this time but patient is having a great deal of pain and difficulty swallowing though she is able to get down small quantities of liquids. color specialist contacted and no surgery indicated at this time. Immune fevers and pain -IV clindamycin -Pain control with lozenges and viscous lidocaine -Additional pain control with acetaminophen, ibuprofen or oxycodone for more impressive pain -reassess in the morning -Blood cultures if she has a fever Essential hypertension-continue home medications. Maintenance issues - - DVT prophylaxis -mechanical - GI prophylaxis -H2 carlitos - Nutrition -full liquids - Cesar catheter -not indicated CODE STATUS -full code Admission justification -this patient will be admitted for inpatient services and is medically appropriate meeting medical necessity for inpatient admission as outlined in my documentation. I reasonably expect the patient will require inpatient services that span a period time over 2 midnights. I reasonably expect this patient to be discharged or transferred within 96 hours after admission to the [facility]. Disposition -I would anticipate discharge home after the hospital stay Primary care physician -Sheeba Toribio nurse practitioner
[2019-04-20] MEDS: atorvaSTATin 20 MG Tab PO SCH (21:42)
[2019-04-20] MEDS: Amitriptyline 25 MG Tab PO SCH (21:42)
[2019-04-20] MEDS: Losartan 25 MG Tab PO SCH (21:46)
[2019-04-21] MEDS: Ibuprofen 600 MG Tab PO PRN ×2 (01:18→18:28)
[2019-04-21] MEDS: Fluticasone-Salmeterol 113-14 MCG Powder Inhalant INH SCH ×2 (06:58→21:35)
[2019-04-21] MEDS: Famotidine 20 MG Tab PO SCH (08:46)
[2019-04-21] MEDS: Calcium Carbonate/Vitamin D3 1500 MG-400 Units Tab PO SCH ×2 (08:46→21:34)
[2019-04-21] MEDS: Lactobacillus Rhamnosus GG (Probiotic) Cap PO SCH ×2 (08:46→21:30)
[2019-04-21] MEDS: Aspirin 81 MG Tab.EC PO SCH (08:46)
[2019-04-21] MEDS: Cyanocobalamin (Vitamin B12) 1,000 MCG Tab PO SCH (08:46)
[2019-04-21] MEDS: Metoprolol Succinate 50 MG Tab.ER PO SCH ×2 (08:47→21:33)
[2019-04-21] MEDS ORDERED: Sodium Phosphate,Monobasic/Sodium Phosphate,Dibasic Enema 133 ML Bottle RECTAL PRN (12:26)
[2019-04-21] MEDS ORDERED: Bisacodyl 10 MG Supp RECTAL ONE ×2 (12:26→14:45)
[2019-04-21] MEDS ORDERED: Simethicone 80 MG Tab.Chew PO PRN (12:26)
[2019-04-21] MEDS ORDERED: Polyethylene Glycol 3350 Powder 119 GM Bottle PO ONE (13:00)
--- NOTE | 2019-04-21 13:31 | PCM.PN ---
- General Info Date of Service: 04/21/19 Subjective Update: Ms. Mayo has noted further improvement over the last 24 hours with less pain in the neck, modest improvement in swelling, and improved swallowing. Vital signs have remained stable and she has been afebrile. White blood cell count remains moderately elevated. Functional Status: Reports: Tolerating Diet, Ambulating, Urinating - Review of Systems General: Denies: Fever, Chills HEENT: Reports: Other (Left neck pain) Pulmonary: Reports: No Symptoms Cardiovascular: Reports: No Symptoms Gastrointestinal: Reports: No Symptoms - Patient Data Vitals - Most Recent: Last Vital Signs Temp 96.9 F 04/21/19 11:38 Pulse 81 04/21/19 11:38 Resp 16 04/21/19 11:38 BP 131/77 04/21/19 11:38 Pulse Ox 91 L 04/21/19 11:38 Weight - Most Recent: 168 lb I&O - Last 24 Hours: Intake & Output 04/20/19 04/21/19 04/21/19 22:59 06:59 14:59 Intake Total 700 550 990 Output Total 1529 811 2576 Balance -700 100 -710 Lab Results Last 24 Hours: Laboratory Results - last 24 hr 04/21/19 04/21/19 Range/Units 06:00 06:00 WBC 16.6 H (4.5-11.0) K/uL RBC 3.59 (3.30-5.50) M/uL Hgb 11.1 L (12.0-15.0) g/dL Hct 35.5 L (36.0-48.0) % MCV 99 H (80-98) fL MCH 31 (27-31) pg MCHC 31 L (32-36) % Plt Count 207 (150-400) K/uL Neut % (Auto) 75 H (36-66) % Lymph % (Auto) 14 L (24-44) % Gonzales % (Auto) 11 H (2-6) % Eos % (Auto) 1 L (2-4) % Baso % (Auto) 0 (0-1) % Sodium 134 L (140-148) mmol/L Potassium 4.2 (3.6-5.2) mmol/L Chloride 100 (100-108) mmol/L Carbon Dioxide 25 (21-32) mmol/L Anion Gap 13.2 (5.0-14.0) mmol/L BUN 5 L (7-18) mg/dL Creatinine 0.8 (0.6-1.0) mg/dL Est Cr Clr Drug Dosing 46.40 mL/min Estimated GFR (MDRD) > 60 (>60) Glucose 111 H (74-106) mg/dL Calcium 8.3 L (8.5-10.1) mg/dL Jasmeet Results Last 24 Hours: Microbiology 04/19/19 15:32 Quick Strep Confirmation Culture - Preliminary Throat NO GROUP A STREP ISOLATED REFERENCE RANGE: NEGATIVE Group A Streptococcus Rapid Screen - Final NEGATIVE STREP A SCREEN REFERENCE RANGE: NEGATIVE Med Orders - Current: Current Medications Acetaminophen (Tylenol) 650 mg PO Q4H PRN PRN Reason: Pain (Mild 1-3)/fever Last Admin: 04/20/19 18:44 Dose: 650 mg Amitriptyline HCl (Elavil) 12.5 mg PO BEDTIME [facility] Last Admin: 04/20/19 21:42 Dose: 12.5 mg Aspirin (Halfprin) 81 mg PO DAILY [facility] Last Admin: 04/21/19 08:46 Dose: 81 mg Atorvastatin Calcium (Lipitor) 20 mg PO BEDTIME [facility] Last Admin: 04/20/19 21:42 Dose: 20 mg Benzocaine/Menthol (Cepacol Sore Throat) 1 lozenge MUCMEM Q2H PRN PRN Reason: Sore Throat Last Admin: 04/20/19 07:43 Dose: 1 derrick Calcium Carbonate (Caltrate 600+D 1500 Mg-400 Units) 1 tab PO BID [facility] Last Admin: 04/21/19 08:46 Dose: 1 tab Calcium Carbonate/Glycine (Tums) 500 mg PO DAILY PRN PRN Reason: Heartburn Cyanocobalamin (Vitamin B12) 1,000 mcg PO DAILY [facility] Last Admin: 04/21/19 08:46 Dose: 1,000 mcg Diazepam (Valium.) 5 mg PO BID PRN PRN Reason: Muscle Spasm Famotidine (Pepcid) 20 mg PO DAILY [facility] Last Admin: 04/21/19 08:46 Dose: 20 mg Clindamycin Phosphate 600 mg/ (Sodium Chloride) 54 mls @ 100 mls/hr IV Q8H [facility] Last Admin: 04/21/19 10:02 Dose: 100 mls/hr Ibuprofen (Motrin) 600 mg PO Q6H PRN PRN Reason: Pain/Fever Last Admin: 04/21/19 01:18 Dose: 600 mg Lactobacillus Rhamnosus (Culturelle) 1 cap PO BID [facility] Last Admin: 04/21/19 08:46 Dose: 1 cap Lidocaine HCl (Xylocaine 2% Viscous) 15 ml PO Q4H PRN PRN Reason: Sore Throat Lorazepam (Ativan) 0.5 mg IVPUSH Q4H PRN PRN Reason: Nausea/Vomiting Losartan Potassium (Cozaar) 25 mg PO BEDTIME [facility] Last Admin: 04/20/19 21:46 Dose: 25 mg Magnesium Hydroxide (Milk Of Magnesia) 30 ml PO Q12H PRN PRN Reason: Constipation Melatonin (Melatonin) 9 mg PO BEDTIME PRN PRN Reason: Sleep Last Admin: 04/19/19 21:13 Dose: 9 mg Metoprolol Succinate (Toprol Xl) 50 mg PO BID [facility] Last Admin: 04/21/19 08:47 Dose: 50 mg Ondansetron HCl (Zofran Odt) 4 mg PO Q6H PRN PRN Reason: Nausea able to take PO Ondansetron HCl (Zofran) 4 mg IV Q6H PRN PRN Reason: Nausea/Vomiting Oxycodone HCl (Oxycodone) 5 - 10 mg PO Q4H PRN PRN Reason: Pain Last Admin: 04/20/19 18:43 Dose: 10 mg Polyethylene Glycol (Miralax) 17 gm PO BID [facility] Fluticasone/Salmeterol (Fluticasone-Salmeterol 113-14 Mcg Powder Inh) 1 puff INH BIDRT [facility] Last Admin: 04/21/19 06:58 Dose: 1 puff Senna/Docusate Sodium (Senna Plus) 1 tab PO BID PRN PRN Reason: Constipation Last Admin: 04/21/19 08:48 Dose: 1 tab Simethicone (Simethicone) 80 mg PO Q4H PRN PRN Reason: Other Sodium Biphosphate/Sodium Phosphate (Fleet Enema) 133 ml RECTAL ONETIME PRN PRN Reason: Constipation Discontinued Medications Bisacodyl (Dulcolax) 10 mg RECTAL ONETIME ONE Stop: 04/21/19 12:27 Sodium Chloride (Normal Saline) 100 mls @ 3 mls/sec IV ASDIRECTED [facility] Clindamycin Phosphate 600 mg/ (Sodium Chloride) 54 mls @ 100 mls/hr IV ONETIME ONE Stop: 04/19/19 18:41 Last Admin: 04/19/19 18:25 Dose: 100 mls/hr Sodium Chloride (Normal Saline) 1,000 mls @ 100 mls/hr IV ASDIRECTED [facility] Last Admin: 04/20/19 05:04 Dose: 100 mls/hr Clindamycin Phosphate 600 mg/ (Sodium Chloride) 54 mls @ 100 mls/hr IV Q8H [facility] Last Admin: 04/20/19 02:39 Dose: 100 mls/hr Iopamidol (Isovue-300 (61%)) 100 ml IV . DIRECTED PRN PRN Reason: RADIOLOGY EXAM Stop: 04/20/19 16:10 Lidocaine HCl (Xylocaine 2% Viscous) 15 ml PO ONETIME ONE Stop: 04/19/19 18:47 Last Admin: 04/19/19 19:10 Dose: 15 ml Losartan Potassium (Cozaar) 25 mg PO DAILY [facility] Mometasone Furoate/Formoterol Fumar (Dulera 100-5 Mcg) 2 puff IH BIDRT [facility] Last Admin: 04/19/19 21:29 Dose: Not Given Polyethylene Glycol (Miralax) 119 gm PO ONETIME ONE Stop: 04/21/19 13:01 - Exam General: Alert, Oriented, Cooperative, Mild Distress Neck: Other (Swelling and tenderness left neck) Lungs: Clear to Auscultation, Normal Respiratory Effort Cardiovascular: Regular Rate, Regular Rhythm, No Murmurs GI/Abdominal Exam: Soft, Non-Tender, No Organomegaly, No Distention Extremities: Non-Tender, No Pedal Edema Sepsis Event Note - Evaluation Sepsis Screening Result: No Definite Risk - Focused Exam Vital Signs: Vital Signs Temp Pulse Pulse Resp BP BP Pulse Ox 04/21/19 11:38 96.9 F 81 16 131/77 91 L 04/21/19 08:47 79 119/67 04/21/19 08:26 96.9 F 79 16 119/67 96 04/21/19 02:43 97.9 F 74 16 114/58 L 92 L Date Exam was Performed: 04/21/19 Time Exam was Performed: 13:25 - Problem List Review Problem List Initiated/Reviewed/Updated: Yes - My Orders Last 24 Hours: My Active Orders 04/20/19 13:33 Convert IV to Saline Lock [OM.PC] Routine 04/21/19 12:26 Na Phos,M-B/Na Phos,DI-B [Fleet Enema] 133 ml RECTAL ONETIME PRN Simethicone 80 mg PO Q4H PRN 04/21/19 21:00 Polyethylene Glycol 3350 [MiraLAX] 17 gm PO BID 04/21/19 Lunch Soft Diet [DIET] 04/22/19 05:00 BASIC METABOLIC PANEL,BMP [CHEM] Timed CBC WITH AUTO DIFF [HEME] Timed - Plan Plan:: ASSESSMENT AND PLAN - Left peritonsillar abscess with epiglottitis-significantly improved from admission with less pain and swelling -IV clindamycin -Pain control with lozenges and viscous lidocaine -Additional pain control with acetaminophen, ibuprofen or oxycodone for more impressive pain -reassess in the morning -Blood cultures if she has a fever -Advanced to soft diet Essential hypertension-continue home medications. Maintenance issues - - DVT prophylaxis -mechanical - GI prophylaxis -H2 carlitos - Nutrition -soft diet - Cesar catheter -not indicated CODE STATUS -full code Admission justification -this patient will be admitted for inpatient services and is medically appropriate meeting medical necessity for inpatient admission as outlined in my documentation. I reasonably expect the patient will require inpatient services that span a period time over 2 midnights. I reasonably expect this patient to be discharged or transferred within 96 hours after admission to the [facility]. Disposition -I would anticipate discharge home after the hospital stay Primary care physician -Sheeba Toribio nurse practitioner
[2019-04-21] MEDS: Amitriptyline 25 MG Tab PO SCH (21:30)
[2019-04-21] MEDS: Losartan 25 MG Tab PO SCH (21:30)
[2019-04-21] MEDS: atorvaSTATin 20 MG Tab PO SCH (21:32)
[2019-04-21] MEDS: Polyethylene Glycol 3350 Powder 17 GM Packet PO SCH (21:33)
[2019-04-21] MEDS: Calcium Carbonate 500 MG Tab.Chew PO PRN (22:31)
[2019-04-21] MEDS: Diazepam 5 MG Tab PO PRN (22:33)
[2019-04-22] MEDS: Melatonin 3 MG Tab PO PRN ×2 (00:34→21:45)
[2019-04-22] MEDS: Calcium Carbonate 500 MG Tab.Chew PO PRN ×2 (04:21→21:42)
[2019-04-22] MEDS: Ibuprofen 600 MG Tab PO PRN ×2 (08:23→17:58)
[2019-04-22] MEDS: Fluticasone-Salmeterol 113-14 MCG Powder Inhalant INH SCH ×2 (08:38→20:19)
[2019-04-22] MEDS: Calcium Carbonate/Vitamin D3 1500 MG-400 Units Tab PO SCH ×2 (09:49→20:18)
[2019-04-22] MEDS: Famotidine 20 MG Tab PO SCH (09:49)
[2019-04-22] MEDS: Lactobacillus Rhamnosus GG (Probiotic) Cap PO SCH ×2 (09:49→20:18)
[2019-04-22] MEDS: Aspirin 81 MG Tab.EC PO SCH (09:49)
[2019-04-22] MEDS: Cyanocobalamin (Vitamin B12) 1,000 MCG Tab PO SCH (09:49)
[2019-04-22] MEDS: Polyethylene Glycol 3350 Powder 17 GM Packet PO SCH ×2 (09:50→20:19)
[2019-04-22] MEDS: Metoprolol Succinate 50 MG Tab.ER PO SCH ×2 (09:50→20:20)
--- NOTE | 2019-04-22 13:43 | PCM.PN ---
- General Info Date of Service: 04/22/19 Subjective Update: Ms. Mayo shown further improvement since yesterday with less swelling in the left neck and only mild discomfort now with swallowing. Vital signs have remained stable and she has been afebrile. Currently tolerating a soft low residue diet. Functional Status: Reports: Pain Controlled, Tolerating Diet, Ambulating, Urinating - Review of Systems General: Reports: No Symptoms HEENT: Reports: Sore Throat Pulmonary: Reports: No Symptoms Cardiovascular: Reports: No Symptoms Gastrointestinal: Reports: No Symptoms - Patient Data Vitals - Most Recent: Last Vital Signs Temp 96.9 F 04/22/19 11:25 Pulse 73 04/22/19 11:25 Resp 20 04/22/19 11:25 BP 135/65 04/22/19 11:25 Pulse Ox 96 04/22/19 11:25 Weight - Most Recent: 168 lb I&O - Last 24 Hours: Intake & Output 04/21/19 04/22/19 04/22/19 22:59 06:59 14:59 Intake Total 1090 250 50 Output Total 800 600 800 Balance 290 -350 -750 Lab Results Last 24 Hours: Laboratory Results - last 24 hr 04/22/19 04/22/19 Range/Units 04:15 04:15 WBC 9.5 (4.5-11.0) K/uL RBC 3.51 (3.30-5.50) M/uL Hgb 10.8 L (12.0-15.0) g/dL Hct 34.5 L (36.0-48.0) % MCV 98 (80-98) fL MCH 31 (27-31) pg MCHC 31 L (32-36) % Plt Count 214 (150-400) K/uL Neut % (Auto) 65 (36-66) % Lymph % (Auto) 21 L (24-44) % Reeves % (Auto) 11 H (2-6) % Eos % (Auto) 3 (2-4) % Baso % (Auto) 0 (0-1) % Sodium 138 L (140-148) mmol/L Potassium 4.1 (3.6-5.2) mmol/L Chloride 102 (100-108) mmol/L Carbon Dioxide 28 (21-32) mmol/L Anion Gap 12.1 (5.0-14.0) mmol/L BUN 7 (7-18) mg/dL Creatinine 0.7 (0.6-1.0) mg/dL Est Cr Clr Drug Dosing 53.02 mL/min Estimated GFR (MDRD) > 60 (>60) Glucose 116 H (74-106) mg/dL Calcium 8.5 (8.5-10.1) mg/dL Jasmeet Results Last 24 Hours: Microbiology 04/19/19 15:32 Quick Strep Confirmation Culture - Final Throat NO GROUP A STREP ISOLATED REFERENCE RANGE: NEGATIVE Group A Streptococcus Rapid Screen - Final NEGATIVE STREP A SCREEN REFERENCE RANGE: NEGATIVE Med Orders - Current: Current Medications Acetaminophen (Tylenol) 650 mg PO Q4H PRN PRN Reason: Pain (Mild 1-3)/fever Last Admin: 04/20/19 18:44 Dose: 650 mg Amitriptyline HCl (Elavil) 12.5 mg PO BEDTIME [facility] Last Admin: 04/21/19 21:30 Dose: 12.5 mg Aspirin (Halfprin) 81 mg PO DAILY [facility] Last Admin: 04/22/19 09:49 Dose: 81 mg Atorvastatin Calcium (Lipitor) 20 mg PO BEDTIME [facility] Last Admin: 04/21/19 21:32 Dose: 20 mg Benzocaine/Menthol (Cepacol Sore Throat) 1 lozenge MUCMEM Q2H PRN PRN Reason: Sore Throat Last Admin: 04/20/19 07:43 Dose: 1 derrick Calcium Carbonate (Caltrate 600+D 1500 Mg-400 Units) 1 tab PO BID [facility] Last Admin: 04/22/19 09:49 Dose: 1 tab Calcium Carbonate/Glycine (Tums) 500 mg PO DAILY PRN PRN Reason: Heartburn Last Admin: 04/22/19 04:21 Dose: 500 mg Cyanocobalamin (Vitamin B12) 1,000 mcg PO DAILY [facility] Last Admin: 04/22/19 09:49 Dose: 1,000 mcg Diazepam (Valium.) 5 mg PO BID PRN PRN Reason: Muscle Spasm Last Admin: 04/21/19 22:33 Dose: 5 mg Famotidine (Pepcid) 20 mg PO DAILY [facility] Last Admin: 04/22/19 09:49 Dose: 20 mg Clindamycin Phosphate 600 mg/ (Sodium Chloride) 54 mls @ 100 mls/hr IV Q8H [facility] Last Admin: 04/22/19 10:32 Dose: 100 mls/hr Ibuprofen (Motrin) 600 mg PO Q6H PRN PRN Reason: Pain/Fever Last Admin: 04/22/19 08:23 Dose: 600 mg Lactobacillus Rhamnosus (Culturelle) 1 cap PO BID [facility] Last Admin: 04/22/19 09:49 Dose: 1 cap Lidocaine HCl (Xylocaine 2% Viscous) 15 ml PO Q4H PRN PRN Reason: Sore Throat Lorazepam (Ativan) 0.5 mg IVPUSH Q4H PRN PRN Reason: Nausea/Vomiting Losartan Potassium (Cozaar) 25 mg PO BEDTIME [facility] Last Admin: 04/21/19 21:30 Dose: 25 mg Magnesium Hydroxide (Milk Of Magnesia) 30 ml PO Q12H PRN PRN Reason: Constipation Melatonin (Melatonin) 9 mg PO BEDTIME PRN PRN Reason: Sleep Last Admin: 04/22/19 00:34 Dose: 9 mg Metoprolol Succinate (Toprol Xl) 50 mg PO BID [facility] Last Admin: 04/22/19 09:50 Dose: 50 mg Ondansetron HCl (Zofran Odt) 4 mg PO Q6H PRN PRN Reason: Nausea able to take PO Ondansetron HCl (Zofran) 4 mg IV Q6H PRN PRN Reason: Nausea/Vomiting Oxycodone HCl (Oxycodone) 5 - 10 mg PO Q4H PRN PRN Reason: Pain Last Admin: 04/20/19 18:43 Dose: 10 mg Polyethylene Glycol (Miralax) 17 gm PO BID [facility] Last Admin: 04/22/19 09:50 Dose: 17 gm Fluticasone/Salmeterol (Fluticasone-Salmeterol 113-14 Mcg Powder Inh) 1 puff INH BIDRT [facility] Last Admin: 04/22/19 08:38 Dose: 1 puff Senna/Docusate Sodium (Senna Plus) 1 tab PO BID PRN PRN Reason: Constipation Last Admin: 04/21/19 08:48 Dose: 1 tab Simethicone (Simethicone) 80 mg PO Q4H PRN PRN Reason: Other Last Admin: 04/22/19 04:23 Dose: 80 mg Sodium Biphosphate/Sodium Phosphate (Fleet Enema) 133 ml RECTAL ONETIME PRN PRN Reason: Constipation Discontinued Medications Bisacodyl (Dulcolax) 10 mg RECTAL ONETIME ONE Stop: 04/21/19 14:46 Last Admin: 04/21/19 14:46 Dose: 10 mg Sodium Chloride (Normal Saline) 100 mls @ 3 mls/sec IV ASDIRECTED [facility] Clindamycin Phosphate 600 mg/ (Sodium Chloride) 54 mls @ 100 mls/hr IV ONETIME ONE Stop: 04/19/19 18:41 Last Admin: 04/19/19 18:25 Dose: 100 mls/hr Sodium Chloride (Normal Saline) 1,000 mls @ 100 mls/hr IV ASDIRECTED [facility] Last Admin: 04/20/19 05:04 Dose: 100 mls/hr Clindamycin Phosphate 600 mg/ (Sodium Chloride) 54 mls @ 100 mls/hr IV Q8H [facility] Last Admin: 04/20/19 02:39 Dose: 100 mls/hr Iopamidol (Isovue-300 (61%)) 100 ml IV . DIRECTED PRN PRN Reason: RADIOLOGY EXAM Stop: 04/20/19 16:10 Lidocaine HCl (Xylocaine 2% Viscous) 15 ml PO ONETIME ONE Stop: 04/19/19 18:47 Last Admin: 04/19/19 19:10 Dose: 15 ml Losartan Potassium (Cozaar) 25 mg PO DAILY [facility] Mometasone Furoate/Formoterol Fumar (Dulera 100-5 Mcg) 2 puff IH BIDRT [facility] Last Admin: 04/19/19 21:29 Dose: Not Given Polyethylene Glycol (Miralax) 119 gm PO ONETIME ONE Stop: 04/21/19 13:01 Last Admin: 04/21/19 13:31 Dose: 119 gm - Exam General: Alert, Oriented, Cooperative, Mild Distress Neck: Other (Less swelling to palpation left neck) Lungs: Clear to Auscultation, Normal Respiratory Effort Cardiovascular: Regular Rate, Regular Rhythm, No Murmurs GI/Abdominal Exam: Soft, Non-Tender, No Organomegaly, No Distention Sepsis Event Note - Evaluation Sepsis Screening Result: No Definite Risk - Focused Exam Vital Signs: Vital Signs Temp Pulse Pulse Resp BP BP Pulse Ox 04/22/19 11:25 96.9 F 73 20 135/65 96 04/22/19 09:50 71 138/75 04/22/19 08:16 97.1 F 71 20 138/75 96 04/22/19 03:26 97.1 F 86 18 146/84 H 95 Date Exam was Performed: 04/22/19 Time Exam was Performed: 13:40 - Problem List Review Problem List Initiated/Reviewed/Updated: Yes - My Orders Last 24 Hours: My Active Orders 04/21/19 21:00 Polyethylene Glycol 3350 [MiraLAX] 17 gm PO BID - Plan Plan:: ASSESSMENT AND PLAN - Left peritonsillar abscess with epiglottitis-significantly improved from admission with less pain and swelling -IV clindamycin -Pain control with lozenges and viscous lidocaine -Additional pain control with acetaminophen, ibuprofen or oxycodone for more impressive pain -reassess in the morning -Advanced to soft diet Essential hypertension-continue home medications. Maintenance issues - - DVT prophylaxis -mechanical - GI prophylaxis -H2 carlitos - Nutrition -soft diet - Cesar catheter -not indicated CODE STATUS -full code Admission justification -this patient will be admitted for inpatient services and is medically appropriate meeting medical necessity for inpatient admission as outlined in my documentation. I reasonably expect the patient will require inpatient services that span a period time over 2 midnights. I reasonably expect this patient to be discharged or transferred within 96 hours after admission to the [facility]. Disposition -I would anticipate discharge home tomorrow Primary care physician -Sheeba Toribio nurse practitioner
[2019-04-22] MEDS: Acetaminophen 325 MG Tab PO PRN (18:58)
[2019-04-22] MEDS: Amitriptyline 25 MG Tab PO SCH (20:18)
[2019-04-22] MEDS: atorvaSTATin 20 MG Tab PO SCH (20:19)
[2019-04-22] MEDS: Losartan 25 MG Tab PO SCH (20:22)
[2019-04-22] MEDS: Diazepam 5 MG Tab PO PRN (23:34)
[2019-04-23] MEDS: Fluticasone-Salmeterol 113-14 MCG Powder Inhalant INH SCH (07:47)
[2019-04-23] MEDS: Calcium Carbonate/Vitamin D3 1500 MG-400 Units Tab PO SCH (08:23)
[2019-04-23] MEDS: Polyethylene Glycol 3350 Powder 17 GM Packet PO SCH (08:24)
[2019-04-23] MEDS: Lactobacillus Rhamnosus GG (Probiotic) Cap PO SCH (08:24)
[2019-04-23] MEDS: Famotidine 20 MG Tab PO SCH (08:24)
[2019-04-23] MEDS: Aspirin 81 MG Tab.EC PO SCH (08:24)
[2019-04-23] MEDS: Cyanocobalamin (Vitamin B12) 1,000 MCG Tab PO SCH (08:25)
[2019-04-23] MEDS: Metoprolol Succinate 50 MG Tab.ER PO SCH (08:25)
[2019-04-23] MEDS: Ibuprofen 600 MG Tab PO PRN (09:07)
[2019-04-23 10:59] VITALS: BP 132/63; PULSE 65
--- NOTE | 2019-04-23 12:54 | PCM.DCSUM1 ---
Discharge Summary - Hospital Course Brief History: Ms. Mayo is an 79-year-old woman who was admitted through the emergency department with throat pain, difficulty swallowing, and leukocytosis, secondary to a rachel-tonsillar abscess. - Discharge Data Discharge Date: 04/23/19 Discharge Disposition: Home, Self-Care 01 Condition: Fair - Referral to Home Health Primary Care Physician: PCP None - Discharge Diagnosis/Problem(s) (1) Peritonsillar abscess SNOMED Code(s): 57311526 ICD Code: J36 - PERITONSILLAR ABSCESS Status: Acute Current Visit: Yes (2) Epiglottitis SNOMED Code(s): 63283175 ICD Code: J05.10 - ACUTE EPIGLOTTITIS WITHOUT OBSTRUCTION Status: Acute Current Visit: Yes - Patient Summary/Data Hospital Course: Ms. Mayo presented to the emergency room with sharp moderately severe pain in her neck and throat. Symptoms started with a mild sore throat and have steadily progressed since that time. She reports severe pain in the back of her throat anytime she tries to swallow but liquids are better than solids by far. Pain radiates into the left neck and to the left part of her jaw as well as up to her ear. She has been using acetaminophen and ibuprofen as well as lozenges without any improvement. Pain has been steadily getting worse. She has only been able to consume small amounts of liquid at a time. She was not able to take in anything solid. She has not had any subjective fevers or chills. She felt well prior to onset. She has not had recent difficulties with sore throats. Work-up in the emergency room revealed leukocytosis. CT scan of neck was obtained that showed a left peritonsillar abscess that was about 1 cm. There was some surrounding inflammatory fluid. computer network support specialist in [place] was contacted and he recommended IV antibiotics and close monitoring especially because epiglottitis was also noted. Patient has received clindamycin in the emergency room and will be admitted for further management. During admission she was given IV fluids for hydration and continued on IV clindamycin. Over the next few days of hospitalization she showed good improvement and prior to discharge was able to tolerate a soft diet without difficulty. She continued to have some swelling in the left neck, but this was much improved compared to what she had experienced on admission. She also continued to have mild discomfort with swallowing again significantly improved from admission. White blood cell count normalized and she remained afebrile during her hospital stay. At the time of discharge she will be converted to oral clindamycin 300 mg twice daily for an additional 10 days. During the time that she takes the antibiotics as well as after she will be on probiotic therapy twice daily. Activity will be as tolerated and she will remain on a soft diet until discomfort is totally resolved. Follow-up appointment will be scheduled with her primary care provider within 1 week. - Patient Instructions Diet: GI Soft/Low Residue/Low Fiber Activity: As Tolerated Other/Special Instructions: FU appt. w/ primary care provider w/in 1 week. Return to emergency department immediately if she develops increased pain swelling or fever. - Discharge Plan *PRESCRIPTION DRUG MONITORING PROGRAM REVIEWED*: Not Applicable *COPY OF PRESCRIPTION DRUG MONITORING REPORT IN PATIENT NICOLLE: Not Applicable Prescriptions/Med Rec: Clindamycin HCl 300 mg PO QID #40 capsule Lactobacillus Rhamnosus GG [Culturelle] 1 cap PO BID #60 cap Home Medications: Home Meds Amitriptyline [Elavil] 0.5 tab PO BEDTIME 07/31/13 [History] Calcium Carbonate/Vitamin D3 [Calcium Carbonate/Vitamin D 1250 MG-200 Unit] 1 tab PO BID 07/31/13 [History] Cyanocobalamin (Vitamin B-12) [Vitamin B-12] 1,000 mcg PO DAILY 07/31/13 [ History] Docusate Sodium [Colace] 100 mg PO DAILY PRN 07/31/13 [History] Magnesium Amino Acid Chelate [Magnesium] 100 mg PO DAILY 07/31/13 [History] Metoprolol Succinate [Toprol XL] 50 mg PO BID 07/31/13 [History] Multivit with Calcium,Iron,Min [One Daily Maximum] 1 each PO DAILY 07/31/13 [ History] [place]-3/DHA/Epa/Fish Oil [[place]-3 Fish Oil 1,000 MG Sfgl] 1,000 mg PO DAILY [History] Psyllium with Sucrose [Metamucil] 1 each PO DAILY 07/31/13 [History] atorvaSTATin [Lipitor] 20 mg PO BEDTIME 07/31/13 [History] diazePAM [Valium] 5 mg PO BID PRN 07/31/13 [History] Aspirin [Ecotrin EC] 1 tab PO DAILY 06/29/16 [History] Calcium Carbonate [Tums] 1 tab PO DAILY PRN 06/29/16 [History] Albuterol [Ventolin HFA] 1 - 2 puff INH Q6H PRN 12/19/18 [History] Famotidine 20 mg PO DAILY #30 tablet 12/19/18 [Rx] Famotidine [Pepcid] 20 mg PO ASDIRECTED PRN 12/19/18 [History] Fluticasone/Vilanterol [Breo Ellipta 100-25 MCG Inhalation Kit] 1 puff INH DAILY 12/19/18 [History] Losartan [Cozaar] 25 mg PO DAILY 12/19/18 [History] Clindamycin HCl 300 mg PO QID #40 capsule 04/23/19 [Rx] Lactobacillus Rhamnosus GG [Culturelle] 1 cap PO BID #60 cap 04/23/19 [Rx] Patient Handouts: Peritonsillar Abscess Referrals: Sheeba Toribio CNM [Mid-] - 04/27/19 1:30 pm (Please arrive 15 minutes early to register for your appointment.) - Discharge Summary/Plan Comment DC Time >30 min.: No - Patient Data Vitals - Most Recent: Last Vital Signs Temp 97.6 F 04/23/19 10:58 Pulse 65 04/23/19 10:58 Resp 18 04/23/19 10:58 BP 132/63 04/23/19 10:58 Pulse Ox 95 04/23/19 10:58 Weight - Most Recent: 168 lb I&O - Last 24 hours: Intake & Output 04/22/19 04/23/19 04/23/19 22:59 06:59 14:59 Intake Total 200 755 360 Output Total 776 262 2250 Balance -400 255 -1140 Med Orders - Current: Current Medications Acetaminophen (Tylenol) 650 mg PO Q4H PRN PRN Reason: Pain (Mild 1-3)/fever Last Admin: 04/22/19 18:58 Dose: 650 mg Amitriptyline HCl (Elavil) 12.5 mg PO BEDTIME [facility] Last Admin: 04/22/19 20:18 Dose: 12.5 mg Aspirin (Halfprin) 81 mg PO DAILY MACO Last Admin: 04/23/19 08:24 Dose: 81 mg Atorvastatin Calcium (Lipitor) 20 mg PO BEDTIME MACO Last Admin: 04/22/19 20:19 Dose: 20 mg Benzocaine/Menthol (Cepacol Sore Throat) 1 lozenge MUCMEM Q2H PRN PRN Reason: Sore Throat Last Admin: 04/20/19 07:43 Dose: 1 derrick Calcium Carbonate (Caltrate 600+D 1500 Mg-400 Units) 1 tab PO BID [facility] Last Admin: 04/23/19 08:23 Dose: 1 tab Calcium Carbonate/Glycine (Tums) 500 mg PO DAILY PRN PRN Reason: Heartburn Last Admin: 04/22/19 21:42 Dose: 500 mg Cyanocobalamin (Vitamin B12) 1,000 mcg PO DAILY [facility] Last Admin: 04/23/19 08:25 Dose: 1,000 mcg Diazepam (Valium.) 5 mg PO BID PRN PRN Reason: Muscle Spasm Last Admin: 04/22/19 23:34 Dose: 5 mg Famotidine (Pepcid) 20 mg PO DAILY [facility] Last Admin: 04/23/19 08:24 Dose: 20 mg Clindamycin Phosphate 600 mg/ (Sodium Chloride) 54 mls @ 100 mls/hr IV Q8H [facility] Last Admin: 04/23/19 10:32 Dose: 100 mls/hr Ibuprofen (Motrin) 600 mg PO Q6H PRN PRN Reason: Pain/Fever Last Admin: 04/23/19 09:07 Dose: 600 mg Lactobacillus Rhamnosus (Culturelle) 1 cap PO BID [facility] Last Admin: 04/23/19 08:24 Dose: 1 cap Lidocaine HCl (Xylocaine 2% Viscous) 15 ml PO Q4H PRN PRN Reason: Sore Throat Lorazepam (Ativan) 0.5 mg IVPUSH Q4H PRN PRN Reason: Nausea/Vomiting Losartan Potassium (Cozaar) 25 mg PO BEDTIME [facility] Last Admin: 04/22/19 20:22 Dose: 25 mg Magnesium Hydroxide (Milk Of Magnesia) 30 ml PO Q12H PRN PRN Reason: Constipation Melatonin (Melatonin) 9 mg PO BEDTIME PRN PRN Reason: Sleep Last Admin: 04/22/19 21:45 Dose: 9 mg Metoprolol Succinate (Toprol Xl) 50 mg PO BID [facility] Last Admin: 04/23/19 08:25 Dose: 50 mg Ondansetron HCl (Zofran Odt) 4 mg PO Q6H PRN PRN Reason: Nausea able to take PO Last Admin: 04/22/19 21:45 Dose: 4 mg Ondansetron HCl (Zofran) 4 mg IV Q6H PRN PRN Reason: Nausea/Vomiting Oxycodone HCl (Oxycodone) 5 - 10 mg PO Q4H PRN PRN Reason: Pain Last Admin: 04/20/19 18:43 Dose: 10 mg Polyethylene Glycol (Miralax) 17 gm PO BID [facility] Last Admin: 04/23/19 08:24 Dose: 17 gm Fluticasone/Salmeterol (Fluticasone-Salmeterol 113-14 Mcg Powder Inh) 1 puff INH BIDRT [facility] Last Admin: 04/23/19 07:47 Dose: 1 puff Senna/Docusate Sodium (Senna Plus) 1 tab PO BID PRN PRN Reason: Constipation Last Admin: 04/21/19 08:48 Dose: 1 tab Simethicone (Simethicone) 80 mg PO Q4H PRN PRN Reason: Other Last Admin: 04/22/19 04:23 Dose: 80 mg Sodium Biphosphate/Sodium Phosphate (Fleet Enema) 133 ml RECTAL ONETIME PRN PRN Reason: Constipation Discontinued Medications Bisacodyl (Dulcolax) 10 mg RECTAL ONETIME ONE Stop: 04/21/19 14:46 Last Admin: 04/21/19 14:46 Dose: 10 mg Sodium Chloride (Normal Saline) 100 mls @ 3 mls/sec IV ASDIRECTED [facility] Clindamycin Phosphate 600 mg/ (Sodium Chloride) 54 mls @ 100 mls/hr IV ONETIME ONE Stop: 04/19/19 18:41 Last Admin: 04/19/19 18:25 Dose: 100 mls/hr Sodium Chloride (Normal Saline) 1,000 mls @ 100 mls/hr IV ASDIRECTED [facility] Last Admin: 04/20/19 05:04 Dose: 100 mls/hr Clindamycin Phosphate 600 mg/ (Sodium Chloride) 54 mls @ 100 mls/hr IV Q8H [facility] Last Admin: 04/20/19 02:39 Dose: 100 mls/hr Iopamidol (Isovue-300 (61%)) 100 ml IV . DIRECTED PRN PRN Reason: RADIOLOGY EXAM Stop: 04/20/19 16:10 Lidocaine HCl (Xylocaine 2% Viscous) 15 ml PO ONETIME ONE Stop: 04/19/19 18:47 Last Admin: 04/19/19 19:10 Dose: 15 ml Losartan Potassium (Cozaar) 25 mg PO DAILY [facility] Mometasone Furoate/Formoterol Fumar (Dulera 100-5 Mcg) 2 puff IH BIDRT MACO Last Admin: 04/19/19 21:29 Dose: Not Given Polyethylene Glycol (Miralax) 119 gm PO ONETIME ONE Stop: 04/21/19 13:01 Last Admin: 04/21/19 13:31 Dose: 119 gm - Exam Quality Assessment: Reports: DVT Prophylaxis General: Reports: Alert, Oriented, Cooperative, Mild Distress HEENT: Reports: Other (Swelling and tenderness L neck) Lungs: Reports: Clear to Auscultation, Normal Respiratory Effort Cardiovascular: Reports: Regular Rate, Regular Rhythm, No Murmurs GI/Abdominal Exam: Soft, Non-Tender, No Organomegaly, No Distention
== END 2019-04-23 13:25 | disposition home or self-care (01) | DRG 153 ==
LOC: JP.ED 13:22 → JP.MS 18:46
PROVIDERS: ADMIT Internal Medicine; ATTEND Hospitalist
DX: J36 Peritonsillar abscess (principal); K65.1 Peritoneal abscess; J05.10 Acute epiglottitis without obstruction; H54.7 Unspecified visual loss; I35.0 Nonrheumatic aortic (valve) stenosis; J44.9 Chronic obstructive pulmonary disease, unspecified; G47.30 Sleep apnea, unspecified; K21.9 Gastro-esophageal reflux disease without esophagitis; M19.90 Unspecified osteoarthritis, unspecified site; K58.9 Irritable bowel syndrome, unspecified; M81.0 Age-related osteoporosis without current pathological fracture; E86.0 Dehydration; I10 Essential (primary) hypertension; Z79.899 Other long term (current) drug therapy; Z79.82 Long term (current) use of aspirin; Z88.0 Allergy status to penicillin; Z88.8 Allergy status to other drugs, medicaments and biological substances
CPT/HCPCS: 36415; 70491; 80048; 83605; 85025; 86140; 87081; 87880; 96365; 99285; J3490; J7050; 85027; 94640; 99284; A9270-GY; J7030

== ENCOUNTER 2019-10-07 07:53 | Day surgery (SDC) | payer BC, MEDICARE ==
[~2019-10-07 07:53] MED LIST: Dexamethasone 4 MG/ML SDV ONE; Glycopyrrolate 0.2 MG/ML 5 ML MDV ONE; Neostigmine Methylsulfate 1 MG/ML 5 ML Syringe ONE; Ondansetron 4 MG/2 ML SDV ONE; Oxymetazoline 0.05% Nasal Spray 30 ML Bottle ONE; Povidone-Iodine 10% Soln 118.25 ML Bottle ONE; Propofol 200 MG/20 ML SDV ONE; Rocuronium 50 MG/5 ML Vial ONE; fentaNYL 250 MCG/5 ML SDV ONE
[2019-10-07] MEDS ORDERED: Albuterol/Ipratropium 3.0-0.5 MG/3 ML Neb Soln NEB ONE (08:14)
[2019-10-07] MEDS ORDERED: Sodium Chloride 0.9% 1,000 ML IV SCH (08:15)
[2019-10-07] MEDS ORDERED: ceFAZolin 2 GM in Premix Bag 1 BAG IV ONE (08:30)
[2019-10-07] MEDS ORDERED: Clindamycin Phosphate 600 MG in Sodium Chloride 0.9% 100 ML IV ONE ×2 (09:00)
[2019-10-07] MEDS ORDERED: Dexamethasone 4 MG/ML SDV ONE (09:13)
[2019-10-07] MEDS ORDERED: Naloxone 0.4 MG/ML SDV ONE (09:49)
[2019-10-07] MEDS ORDERED: Acetaminophen/HYDROcodone 108-2.5 MG/5 ML Soln 15 ML UD Cup PO ONE (11:00)
[2019-10-07 12:06] VITALS: BP 118/63; PULSE 76
--- NOTE | 2019-10-07 14:33 | OR ---
DATE OF PROCEDURE: 10/07/2019 SURGEON: Reji Lincoln MD PREOPERATIVE DIAGNOSIS: History of left peritonsillar abscess. POSTOPERATIVE DIAGNOSIS: History of left peritonsillar abscess. PROCEDURE PERFORMED: Tonsillectomy, bilateral; over 12 years of age. ANESTHESIA: General. ESTIMATED BLOOD LOSS: Minimal. DESCRIPTION OF TECHNIQUE: After satisfactory endotracheal anesthesia, Booker-Caio mouth gag was placed and soft palate retracted. No adenoid tissue was seen. Small residual tonsils were seen bilaterally. Right tonsil was removed at the tonsillar fascia and removed completely without incident. The left tonsil showed quite a bit of scarring superiorly and especially inferiorly; and inferomedially, I encounter a small abscess again. The left tonsil was also removed in a peritonsillar plane. Bleeders were suctioned coagulated and multiply checked for occult bleeders before mouth gag was taken out. The patient was extubated and transferred to recovery room in stable condition. DISCHARGE MEDICATIONS: Consist of clindamycin 300 mg t.i.d. for a week, Hycet for pain, and Zofran for nausea. Reji Lincoln MD /[id number]
== END 2019-10-07 12:46 | disposition home or self-care (01) ==
LOC: JP.SDS 07:53
PROVIDERS: ATTEND Otolaryngology
DX: J03.90 Acute tonsillitis, unspecified (principal); I10 Essential (primary) hypertension; J44.9 Chronic obstructive pulmonary disease, unspecified; K21.9 Gastro-esophageal reflux disease without esophagitis; E78.00 Pure hypercholesterolemia, unspecified; E78.2 Mixed hyperlipidemia; E66.9 Obesity, unspecified; Z88.0 Allergy status to penicillin; Z88.8 Allergy status to other drugs, medicaments and biological substances; Z88.1 Allergy status to other antibiotic agents; Z79.899 Other long term (current) drug therapy; Z79.51 Long term (current) use of inhaled steroids; Z87.891 Personal history of nicotine dependence; Z68.28 Body mass index [BMI] 28.0-28.9, adult
CPT/HCPCS: 42826; 88304; 94640; A9270; J1100; J2310; J2405; J2704; J2710; J3010; J3490; J7030; J7050; J7620-GY

== ENCOUNTER 2021-05-13 11:37 | Emergency (ER) | payer MEDICARE ==
[2021-05-13 12:07] VITALS: BP 174/94; PULSE 77
--- NOTE | 2021-05-13 13:16 | EDM.PDOC ---
ED HPI GENERAL MEDICAL PROBLEM - General Chief Complaint: Genitourinary Problem Stated Complaint: BLADDER INFECTION Time Seen by Provider: 05/13/21 13:00 Source of Information: Reports: Patient, Old Records History Limitations: Reports: No Limitations - History of Present Illness INITIAL COMMENTS - FREE TEXT/NARRATIVE: 81 yo female with recent onset of dysuria, frequency and gross hematuria. She had clindamycin at home and took the 2 doses of 300 mg each that she had at home. Now is feeling quite a bit better. Onset: Gradual Onset Date: 05/12/21 Duration: Day(s): (1+), Improving Location: Reports: Pelvis (urethral) Quality: Reports: Burning Severity: Mild (now, was worse) Improves with: Reports: Medication (clindamycin) Worsens with: Reports: Other (unsure) Context: Reports: Other (See HPI) Associated Symptoms: Reports: No Other Symptoms. Denies: Fever/Chills, Nausea/Vomiting Treatments BANQUET COORDINATOR: Reports: Other (see below) (clindamycin) - Related Data Allergies Allergy/AdvReac Type Severity Reaction Status Date / Time atenolol Allergy Itching Verified 10/07/19 08:22 penicillin G Allergy Hives Verified 10/07/19 08:22 Home Meds: Home Meds Amitriptyline [Elavil] 12.5 mg PO BEDTIME 07/31/13 [History] Calcium Carbonate/Vitamin D3 [Calcium Carbonate/Vitamin D 1250 MG - 5 MCG] 1 tab PO BID 07/31/13 [History] Cyanocobalamin (Vitamin B-12) [Vitamin B-12] 1,000 mcg PO DAILY 07/31/13 [History] Docusate Sodium [Colace] 100 mg PO BID PRN 07/31/13 [History] Magnesium Amino Acid Chelate [Magnesium] 250 mg PO DAILY 07/31/13 [History] Metoprolol Succinate [Toprol XL] 50 mg PO BID 07/31/13 [History] Multivit with Calcium,Iron,Min [One Daily Maximum] 1 each PO DAILY 07/31/13 [History] [place]-3/DHA/Epa/Fish Oil [[place]-3 Fish Oil 1,000 MG Sfgl] 1,000 mg PO BID 07/31/13 [History] Psyllium with Sucrose [Metamucil] 1 each PO DAILY 07/31/13 [History] atorvaSTATin [Lipitor] 20 mg PO BEDTIME 07/31/13 [History] diazePAM [Valium.] 5 mg PO BID PRN 07/31/13 [History] Aspirin [Ecotrin EC] 1 tab PO DAILY 06/29/16 [History] Albuterol [Ventolin HFA] 1 - 2 puff INH Q6H PRN 12/19/18 [History] Famotidine [Pepcid] 20 mg PO ASDIRECTED PRN 12/19/18 [History] Losartan [Cozaar] 25 mg PO DAILY 12/19/18 [History] Cholecalciferol (Vitamin D3) [Vitamin D3] 1,000 unit PO DAILY 10/02/19 [History] Clindamycin HCl 300 mg PO ASDIRECTED 10/02/19 [History] Fluticasone/Salmeterol [Advair 250-50] 1 puff INH BID 10/02/19 [History] Nasacort Allergy 24 Hr 2 spray LUCIE DAILY 10/02/19 [History] Ubidecarenone [Co Q-10] 100 mg PO DAILY 10/02/19 [History] Amitriptyline [Elavil] 25 mg PO BEDTIME 10/07/19 [History] Past Medical History HEENT History: Reports: Impaired Vision Cardiovascular History: Reports: Cardiomyopathy, Heart Murmur, Hypertension Other Cardiovascular History: arotic stenosis Respiratory History: Reports: COPD, Sleep Apnea Gastrointestinal History: Reports: GERD, Irritable Bowel Syndrome FIELDWORK COORDINATOR History: Reports: , Other (See Below) Other FIELDWORK COORDINATOR History: hysterectomy Musculoskeletal History: Reports: Osteoarthritis, Osteoporosis Oncologic (Cancer) History: Reports: Uterine - Infectious Disease History Infectious Disease History: Reports: Chicken Pox, Measles, Mumps - Past Surgical History HEENT Surgical History: Reports: Adenoidectomy, Tonsillectomy Social & Family History - Family History Family Medical History: No Pertinent Family History - Tobacco Use Tobacco Use Status *Q: Never Tobacco User - Caffeine Use Caffeine Use: Reports: Coffee - Recreational Drug Use Recreational Drug Use: No ED ROS GENERAL - Review of Systems Review Of Systems: See Below Constitutional: Reports: No Symptoms HEENT: Reports: No Symptoms Respiratory: Reports: No Symptoms Cardiovascular: Reports: No Symptoms GI/Abdominal: Reports: No Symptoms : Reports: Dysuria, Frequency. Denies: Hematuria (now better) Musculoskeletal: Reports: No Symptoms Skin: Reports: No Symptoms Neurological: Reports: No Symptoms Psychiatric: Reports: No Symptoms ED EXAM, RENAL/ - Physical Exam Exam: See Below Exam Limited By: No Limitations General Appearance: Alert, WD/WN, No Apparent Distress Back Exam: No: CVA Tenderness (R), CVA Tenderness (L) Extremities: Normal Inspection Neurological: Alert, Oriented, CN II-XII Intact, Normal Cognition Psychiatric: Normal Affect, Normal Mood Skin Exam: Warm, Dry, Intact, Normal Color, No Rash Course - Vital Signs Last Recorded V/S: Last Vital Signs Temp 36.6 C 05/13/21 12:06 Pulse 77 05/13/21 12:06 Resp 16 05/13/21 12:06 BP 174/94 H 05/13/21 12:06 Pulse Ox 99 05/13/21 12:06 - Orders/Labs/Meds Orders: Active Orders 24 hr Category Date Time Status CULTURE URINE [RM] Stat Lab 05/13/21 13:08 Stop Req Labs: Laboratory Tests 05/13/21 Range/Units 12:40 Urine Color Yellow (YELLOW) Urine Appearance Clear (CLEAR) Urine pH 6.5 (5.0-8.0) Ur Specific [place] 1.020 (1.008-1.030) Urine Protein Negative (NEGATIVE) mg/dL Urine Glucose (UA) Negative (NEGATIVE) mg/dL Urine Ketones Negative (NEGATIVE) mg/dL Urine Occult Blood Trace-intact H (NEGATIVE) Urine Nitrite Negative (NEGATIVE) Urine Bilirubin Negative (NEGATIVE) Urine Urobilinogen 0.2 (0.2-1.0) EU/dL Ur Leukocyte Esterase Small H (NEGATIVE) Urine RBC 5-10 H (0-5) Urine WBC 10-20 H (0-5) Ur Epithelial Cells Not seen Amorphous Sediment Not seen Urine Bacteria Few Urine Mucus Not seen Departure - Departure Time of Disposition: 13:15 Disposition: Home, Self-Care 01 Condition: Good Clinical Impression: Cystitis - Discharge Information *PRESCRIPTION DRUG MONITORING PROGRAM REVIEWED*: Not Applicable *COPY OF PRESCRIPTION DRUG MONITORING REPORT IN PATIENT NICOLLE: Not Applicable Instructions: Urinary Tract Infection, Adult, Clic-ya-Mzeg Referrals: PCP,None [Primary Care Provider] - Additional Instructions: Drink ample amts of fluids. Use AZO for the burning. Take clindamycin as directed. Recheck if not better by 3 more days. Sepsis Event Note (ED) - Evaluation Sepsis Screening Result: No Definite Risk - Focused Exam Vital Signs: Vital Signs Temp Pulse Resp BP Pulse Ox 05/13/21 12:06 36.6 C 77 16 174/94 H 99 - My Orders Last 24 Hours: My Active Orders 05/13/21 13:08 CULTURE URINE [RM] Stat - Assessment/Plan Last 24 Hours: My Active Orders 05/13/21 13:08 CULTURE URINE [RM] Stat
== END 2021-05-13 13:37 | disposition home or self-care (01) ==
LOC: JP.ED 11:37
DX: N30.90 Cystitis, unspecified without hematuria (principal); J44.9 Chronic obstructive pulmonary disease, unspecified; K21.9 Gastro-esophageal reflux disease without esophagitis; M19.90 Unspecified osteoarthritis, unspecified site; I11.9 Hypertensive heart disease without heart failure; Z88.0 Allergy status to penicillin; Z88.8 Allergy status to other drugs, medicaments and biological substances; Z79.899 Other long term (current) drug therapy; Z79.82 Long term (current) use of aspirin
CPT/HCPCS: 81001; 87086; 99283

== ENCOUNTER 2022-12-02 10:21 | Emergency (ER) | payer MEDICARE ==
[2022-12-02 11:27] VITALS: BP 141/66; PULSE 60
== END 2022-12-02 12:06 | disposition home or self-care (01) ==
LOC: JP.ED 10:21
DX: Z48.00 Encounter for change or removal of nonsurgical wound dressing (principal); I10 Essential (primary) hypertension; E78.00 Pure hypercholesterolemia, unspecified; Z96.652 Presence of left artificial knee joint; Z79.899 Other long term (current) drug therapy; Z88.0 Allergy status to penicillin; Z88.1 Allergy status to other antibiotic agents; Z88.8 Allergy status to other drugs, medicaments and biological substances
CPT/HCPCS: 99283